=== PATIENT | female | born 1935 ===

== ENCOUNTER 2018-01-14 15:46 | Inpatient (IN) | payer OTHER, MEDICARE ==
[2018-01-14 17:44] VITALS: BMI 25.2
[2018-01-14] MEDS: Insulin Regular 100 units/ml SC SCH (22:06)
[2018-01-15] MEDS: Insulin Regular 100 units/ml SC SCH ×4 (06:36→21:06)
[2018-01-15] MEDS: Levothyroxine 75 MCG TAB PO SCH (06:37)
[2018-01-15] MEDS: Pantoprazole 40 mg EC Tab PO SCH (08:23)
[2018-01-15] MEDS: Metoprolol Succinate 25 mg XL Tab PO SCH (08:23)
[2018-01-15 20:28] VITALS: RESP 20
--- NOTE | 2018-01-16 03:32 | HP ---
HISTORY OF PRESENT ILLNESS: The patient is an 82-year-old female with history of multiple medical problems, was in acute care for presyncope. The patient was admitted to Transitional Care Unit for deconditioning, physical therapy due to dysfunctional gait and tendency to fall. PAST MEDICAL HISTORY: Rheumatoid arthritis, hypothyroidism, hypertension, type 2 diabetes mellitus. FAMILY HISTORY: Noncontributory. SOCIAL HISTORY: No history of smoking, EtOH, or substance abuse. REVIEW OF SYSTEMS: Other review of systems is negative. ALLERGY: POSITIVE FOR CODEINE. MEDICATIONS: Were reviewed and ordered as per [facility]. PHYSICAL EXAMINATION: GENERAL: The patient is not in any cardiopulmonary distress. VITAL SIGNS: Blood pressure 144/65, temperature 97.8, respiratory rate 18, and pulse 78. HEENT: Pupils equal, reactive to light. Normal-appearing mucosa of the conjunctivae, oropharynx and nasal membrane mucosa. NECK: Supple. No JVD. No carotid bruit. No lymph node. No thyromegaly. CARDIOPULMONARY: PMI not localized. S1, S2. No additional sounds. CHEST: Lungs, bilateral symmetrical expansion. Good air exchange. No rales, no rhonchi. ABDOMEN: Normoactive bowel sounds. No tenderness. No organomegaly. No masses. EXTREMITIES: No cyanosis, no clubbing, no edema. FAMILY SERVICES SPECIALIST: Alert, awake, oriented x2. No neurological deficit could be appreciated. ASSESSMENT: Rheumatoid arthritis; dysfunctional gait; status post presyncope, likely neurocardiogenic in origin; type 2 diabetes mellitus; hypertension. PLAN: Continue current medications and physical therapy and occupational therapy. Kalina Grajeda MD
[2018-01-16] MEDS: Levothyroxine 75 MCG TAB PO SCH (06:24)
[2018-01-16] MEDS: Insulin Regular 100 units/ml SC SCH ×4 (06:30→21:22)
[2018-01-16] MEDS: Metoprolol Succinate 25 mg XL Tab PO SCH (08:28)
[2018-01-16] MEDS: Pantoprazole 40 mg EC Tab PO SCH (08:28)
[2018-01-17] MEDS: Levothyroxine 75 MCG TAB PO SCH (05:54)
[2018-01-17] MEDS: Insulin Regular 100 units/ml SC SCH ×4 (06:58→21:09)
[2018-01-17] MEDS: Metoprolol Succinate 25 mg XL Tab PO SCH (08:55)
[2018-01-17] MEDS: Pantoprazole 40 mg EC Tab PO SCH (08:56)
--- NOTE | 2018-01-18 00:27 | PN ---
DATE: 01/17/2018 DAILY PROGRESS NOTE SUBJECTIVE: The patient is seen today, 01/17/2018. She is not in any cardiopulmonary distress. PHYSICAL EXAMINATION: VITAL SIGNS: Blood pressure 108/43, temperature 98.1, respiratory rate 20, and pulse 79. HEENT: Pupils equal, reactive to light. Normal-appearing mucosa of the conjunctivae, oropharynx and nasal membrane mucosa. NECK: Supple. No JVD. No carotid bruit. No lymph node. No thyromegaly. CHEST AND LUNGS: Bilateral symmetrical expansion. Good air exchange. No rales. No rhonchi. CARDIOVASCULAR SYSTEM: PMI not localized. S1 and S2. No additional sounds. ABDOMEN: Normoactive bowel sounds. No tenderness. No organomegaly. No masses. EXTREMITIES: No cyanosis, no clubbing, no edema. CENTRAL NERVOUS SYSTEM: Alert, awake, oriented x2. No neurological deficit could be appreciated. ASSESSMENT: 1. Frequent attacks of syncope/presyncope, likely neurocardiogenic. 2. Hypertension. 3. Hypothyroidism. 4. Type 2 diabetes mellitus. 5. Rheumatoid arthritis. PLAN: Continue current medications, physical therapy, occupational therapy. Kalina Grajeda MD
[2018-01-18] MEDS: Levothyroxine 75 MCG TAB PO SCH (06:02)
[2018-01-18] MEDS: Insulin Regular 100 units/ml SC SCH ×4 (06:41→21:22)
[2018-01-18] MEDS: Metoprolol Succinate 25 mg XL Tab PO SCH (08:12)
[2018-01-18] MEDS: Pantoprazole 40 mg EC Tab PO SCH (08:12)
[2018-01-19] MEDS ORDERED: Levothyroxine 50 MCG TAB PO SCH (06:30)
[2018-01-19] MEDS: Insulin Regular 100 units/ml SC SCH ×4 (06:41→22:03)
[2018-01-19] MEDS: Pantoprazole 40 mg EC Tab PO SCH (08:30)
[2018-01-19] MEDS: Metoprolol Succinate 25 mg XL Tab PO SCH (08:30)
[2018-01-20] MEDS ORDERED: Levothyroxine 50 MCG TAB PO SCH (06:30)
[2018-01-20] MEDS: Insulin Regular 100 units/ml SC SCH ×4 (07:13→21:54)
[2018-01-20] MEDS: Pantoprazole 40 mg EC Tab PO SCH (08:08)
[2018-01-20] MEDS: Metoprolol Succinate 25 mg XL Tab PO SCH (08:09)
[2018-01-21] MEDS: Levothyroxine 75 MCG TAB PO SCH (06:07)
[2018-01-21] MEDS: Insulin Regular 100 units/ml SC SCH ×4 (06:51→22:52)
[2018-01-21] MEDS: Metoprolol Succinate 25 mg XL Tab PO SCH (08:34)
[2018-01-21] MEDS: Pantoprazole 40 mg EC Tab PO SCH (08:35)
--- NOTE | 2018-01-22 01:53 | PN ---
DATE: 01/21/2018 SUBJECTIVE: The patient is seen today 01/21/2018. She is not in any cardiopulmonary distress. The patient is cooperative to both physical therapy and occupational therapy. PHYSICAL EXAMINATION: VITAL SIGNS: Blood pressure is 110/66, temperature 97.9, respiratory rate 20 and pulse 71. HEENT: Pupils equal, reactive to light. Normal-appearing mucosa of the conjunctivae, oropharynx and nasal membrane mucosa. NECK: Supple. No JVD. No carotid bruit. No lymph node. No thyromegaly. CHEST AND LUNGS: Bilateral symmetrical expansion. Good air exchange. No rales, no rhonchi. CARDIOVASCULAR SYSTEM: PMI not localized. S1, S2. No additional sounds. ABDOMEN: Normoactive bowel sounds. No tenderness. No organomegaly. No masses. EXTREMITIES: No cyanosis, no clubbing, no edema. CENTRAL NERVOUS SYSTEM: Alert, awake, oriented x2. No neurological deficit could be appreciated. ASSESSMENT: 1. Frequent syncope/presyncope secondary to neurocardiogenic episodes. 2. Type 2 diabetes mellitus. 3. Hypertension. 4. Rheumatoid arthritis. 5. Hypothyroidism. PLAN: Continue current medications and management, physical therapy and occupational therapy. Kalina Grajeda MD
[2018-01-22] MEDS: Levothyroxine 75 MCG TAB PO SCH (05:50)
[2018-01-22] MEDS: Insulin Regular 100 units/ml SC SCH ×4 (07:43→22:00)
[2018-01-22] MEDS: Metoprolol Succinate 25 mg XL Tab PO SCH (08:11)
[2018-01-22] MEDS: Pantoprazole 40 mg EC Tab PO SCH (08:11)
[2018-01-23] MEDS: Levothyroxine 75 MCG TAB PO SCH (06:05)
[2018-01-23] MEDS: Insulin Regular 100 units/ml SC SCH ×3 (06:32→16:51)
[2018-01-23 08:10] VITALS: TEMP 97.7
[2018-01-23] MEDS: Pantoprazole 40 mg EC Tab PO SCH (08:25)
[2018-01-23] MEDS: Metoprolol Succinate 25 mg XL Tab PO SCH (08:25)
[2018-01-23 16:56] VITALS: BP 105/66; PULSE 70; O2SAT 96
--- NOTE | 2018-01-24 03:38 | DS ---
REASON FOR ADMISSION: This is an 82-year-old female with history of multiple medical problems, was admitted to transitional care unit for deconditioning and physical therapy. COURSE OF HOSPITALIZATION: The patient was admitted to transitional care unit at [facility], and she was started on both physical therapy and occupational therapy. The patient responded well, and she did not have any further episodes of syncope or presyncope. The patient was continued on her original medication, and she had AccuCheks with insulin coverage. The patient was discharged home in stable condition to continue the current medications. FINAL DIAGNOSES: 1. Recurrent syncope/presyncope, likely neurocardiogenic with uncomplicated faint. 2. Rheumatoid arthritis. 3. Hypothyroidism. 4. Type 2 diabetes mellitus. [facility] MD [facility] # [id number]
== END 2018-01-23 19:21 | disposition home health service (06) | DRG 93 ==
LOC: H.TCU 18:34
PROVIDERS: ADMIT Internal Medicine; ATTEND Internal Medicine
PROC: F07Z9FZ Gait Training/Functional Ambulation Treatment using Assistive, Adaptive, Supportive or Protective Equipment (ICD-10-PCS; principal; 2018-01-14)
PROC: F08Z4FZ Home Management Treatment using Assistive, Adaptive, Supportive or Protective Equipment (ICD-10-PCS; 2018-01-14)
PROC: F07M6FZ Therapeutic Exercise Treatment of Musculoskeletal System - Whole Body using Assistive, Adaptive, Supportive or Protective Equipment (ICD-10-PCS; 2018-01-14)
DX: R26.89 Other abnormalities of gait and mobility (principal); R55 Syncope and collapse; M06.9 Rheumatoid arthritis, unspecified; I10 Essential (primary) hypertension; E11.9 Type 2 diabetes mellitus without complications; E03.9 Hypothyroidism, unspecified; R29.6 Repeated falls; Z88.6 Allergy status to analgesic agent